=== PATIENT | female | born 1980 | race Caucasian/White ===

== ENCOUNTER 2022-12-09 10:10 | Outpatient (OUT) | payer OTHER, SELFPAY ==
--- NOTE | 2022-12-09 10:25 | US_ITS ---
The [address] [address] Patient Name: NOEMI WILDE MRN: [id number] date: 1980 Sex: F Assigned Patient Location: LAB Current Patient Location: Accession/Order Number: [id number] Exam Date: 12/09/2022 10:26 Report Date: 12/11/2022 06:28 At the request of: NON-STAFF PHYSICIAN Procedure: US thyroid EXAMINATION: US thyroid HISTORY: NECK SWELLING COMPARISON: No relevant comparison available. TECHNIQUE: Sonographic images of the thyroid gland were obtained. FINDINGS: The right thyroid lobe measures 4.7 x 0.7 x 1.2 cm. Single nodule. Nodule 1:1.6 x 1.3 x 0.9 cm. Solid, hypoechoic, wide, smooth margins, no calcifications. TR 4 The thyroid isthmus measures 2 mm, homogeneous. No focal nodule Left thyroid lobe is normal in size, contour and echotexture measuring 4.4 x 0.8 x 1.1 cm. No focal nodule US/US thyroid IMPRESSION: 1.6 cm right thyroid TR 4 nodule TI-RADS: The [employer] TI-RADS committee's white paper recommendations for thyroid lesions classified as TR4 (moderately suspicious) are listed below: > 1.0 cm. Follow-up ultrasound in 1, 2, 3, and 5 years. > 1.5 cm. FNA. J. Am Jesika Radiol 2017;14:587-595. Electronically authenticated by: DANN QUINTANA Date: 12/11/2022 06:28
[2022-12-09 11:00] LABS: Free T4 0.74 ng/dL (0.76-1.46)
[2022-12-09 11:05] LABS: Thyroid Stimulating Hormone 1.834 uIU/mL (0.358-3.740)
== END 2022-12-09 10:11 | disposition home or self-care (01) ==
LOC: US 10:10 → LAB 10:11
PROVIDERS: PCP Family Medicine
DX: E07.9 Disorder of thyroid, unspecified (principal); E04.1 Nontoxic single thyroid nodule
CPT/HCPCS: 36415; 76536; 84439; 84443

== ENCOUNTER 2023-03-08 15:25 | Outpatient (OUT) | payer OTHER, SELFPAY ==
[2023-03-08 15:40] LABS: Basophils Absolute Auto 0.1 10^3/uL (0.0-0.1); Basophils Percent Auto 0.7 % (0.2-2.0); Eosinophils Absolute Auto 0.2 10^3/uL (0.0-0.7); Eosinophils Percent Auto 3.5 % (0.9-7.0); Hematocrit 37.2 % (36.0-48.0); Hemoglobin 12.9 g/dL (12.0-16.0); Immature Granulocytes Abs Auto 0.02 10^3/uL (0.00-0.03); Immature Granulocytes Pct Auto 0.3 % (0.0-0.5); Lymphocytes Absolute Auto 1.8 10^3/uL (1.2-3.8); Lymphocytes Percent Auto 26.6 % (20.5-60.0); Mean Corpuscular HGB Conc 34.7 g/dL (29.9-35.2); Mean Corpuscular Hemoglobin 31.4 pg (26.7-34.0); Mean Corpuscular Volume 90.5 fL (81.0-99.0); Mean Platelet Volume 9.4 fL (9.5-13.5); Monocytes Absolute Auto 0.5 10^3/uL (0.3-0.8); Monocytes Percent Auto 7.4 % (1.7-12.0); Neutrophils Absolute Auto 4.2 10^3/uL (1.4-6.5); Neutrophils Percent Auto 61.5 % (43.0-75.0); Platelet Count 232 10^3/uL (150-450); Red Blood Count 4.11 10^6/uL (4.20-5.40); Red Cell Distribution Width 12.9 % (11.0-15.0); White Blood Count 6.9 10^3/uL (4.0-11.0)
[2023-03-08 15:55] LABS: Estimated Average Glucose 103 mg/dL; Glycohemoglobin A1C 5.2 % (4.5-6.2)
[2023-03-08 18:10] LABS: Free T4 0.66 ng/dL (0.76-1.46)
[2023-03-08 18:13] LABS: Alanine Aminotransferase 36 U/L (14-59); Albumin Globulin Ratio 1.1; Albumin Level 3.8 g/dL (3.4-5.0); Alkaline Phosphatase 62 U/L (46-116); Anion Gap 10.9; Aspartate Amino Transferase 16 U/L (15-37); BUN Creatinine Ratio 13.1; Bilirubin Direct 0.1 mg/dL (0.0-0.2); Bilirubin Total 0.2 mg/dL (0.2-1.0); Calcium 8.9 mg/dL (8.5-10.1); Carbon Dioxide 26.8 mmol/L (21.0-32.0); Chloride 106 mmol/L (98-107); Chol HDL Ratio 4.7; Cholesterol 213 mg/dL (<=200); Estimated GFR (African America >60 (>=60); Estimated GFR (Non-African Ame >60 (>=60); Free T3 2.17 pg/mL (2.18-3.98); Globulin 3.6 g/dL; Glucose 123 mg/dL (74-106); HDL Cholesterol 45 mg/dL (40-60); Potassium 3.7 mmol/L (3.5-5.1); Sodium 140 mmol/L (136-145); Thyroid Stimulating Hormone 2.043 uIU/mL (0.358-3.740); Total Protein 7.4 g/dL (6.4-8.2); Triglycerides 112 mg/dL (<=150); VLDL CHOLESTEROL 22.4 mg/dL
== END 2023-03-08 15:26 | disposition home or self-care (01) ==
LOC: LAB 15:25
PROVIDERS: PCP Family Medicine; Visit Provider Family Medicine
DX: Z00.00 Encounter for general adult medical examination without abnormal findings (principal); R79.89 Other specified abnormal findings of blood chemistry
CPT/HCPCS: 36415; 80048; 80061; 80076; 83036; 84439; 84443; 84481; 85025

== ENCOUNTER 2023-09-18 16:35 | Outpatient (OUT) | payer OTHER, SELFPAY ==
[2023-09-18 17:15] LABS: Free T4 0.75 ng/dL (0.76-1.46)
[2023-09-18 17:21] LABS: Free T3 2.55 pg/mL (2.18-3.98); Thyroid Stimulating Hormone 2.665 uIU/mL (0.358-3.740)
== END 2023-09-18 16:36 | disposition home or self-care (01) ==
LOC: LAB 16:35
PROVIDERS: PCP Family Medicine; Visit Provider Family Medicine
DX: E03.9 Hypothyroidism, unspecified (principal)
CPT/HCPCS: 36415; 84439; 84443; 84481

== ENCOUNTER 2024-03-20 14:35 | Outpatient (OUT) | payer OTHER, SELFPAY ==
--- OUTSIDE RECORDS SUMMARY | 2024-03-20 14:55 | XMS_ITS | CCD ---
Author Organization [facility] Care Team Providers Care Casino Controller Name Role Phone JUAN JULIAN Attending JUAN Brannon Consulting Unavailable JUAN JULIAN Primary Care Unavailable JUAN JULIAN Admitting Unavailable JUAN JULIAN Attending Unavailable SHAIKH BORDEN Attending Unavailable JUAN JULIAN Attending Unavailable JUAN JULIAN Attending Unavailable JUAN JULIAN Attending Unavailable IESHA, JUAN Attending Unavailable Juan Julian MD Primary Care Provider Shaikh Borden MD Unavailable Medications Current Medications Medication Drug Class(es) Dates Sig (Normalized) Sig (Original) amoxicillin 875 mg / clavulanate 125 mg oral tablet (2 sources) Penicillin-class Antibacterial Start: 11-05-2023 End: 11-15-2023 take 1 tablet by mouth in the morning amoxicillin-clavula rashi (Augmentin) 875-125 MG tablet Indications: Acute non-recurrent pansinusitis Take 1 tablet (875 mg) by mouth in the morning and 1 tablet (875 mg) before bedtime. Do all this for 10 days. 20 tablet 11/05/2023 11/15/2023 Active cetirizine hydrochloride 10 mg oral tablet (3 sources) Histamine-1 Receptor Antagonist Start: 09-20-2023 take 1 tablet by mouth in the morning cetirizine (ZyrTEC) 10 MG tablet Indications: Dysfunction of both eustachian tubes Take 1 tablet (10 mg) by mouth in the morning. 30 tablet 5 09/20/2023 Active fluticasone propionate 0.05 mg/actuat metered dose nasal spray (3 sources) Corticosteroid Start: 10-10-2023 take 2 spray(s) nasal route once daily in the morning fluticasone (Flonase) 50 MCG/ACT nasal spray Indications: Dysfunction of both eustachian tubes INSTILL 2 SPRAYS INTO EACH NOSTRIL EVERY MORNING 16 g 5 10/10/2023 Active levothyroxine sodium 0.025 mg oral tablet (3 sources) l-Thyroxine Start: 09-11-2023 take 1 tablet by mouth before mealtime levothyroxine (Synthroid) 25 MCG tablet Indications: Adult hypothyroidism (CMS/HCC) Take 1 tablet (25 mcg) by mouth in the morning. Take before meals. 30 tablet 5 09/11/2023 Active predniSONE 20 mg oral tablet (2 sources) Start: 11-05-2023 End: 11-10-2023 take 1 tablet by mouth in the morning predniSONE (Deltasone) 20 MG tablet Indications: Acute non-recurrent pansinusitis Take 1 tablet (20 mg) by mouth in the morning and 1 tablet (20 mg) before bedtime. Do all this for 5 days. 10 tablet 11/05/2023 11/10/2023 Active Problems Active Problems Problem Classification Problem Date Documented Date Episodic/Chronic Immunizations and screening for infectious disease (4 sources) Contact with and (suspected) exposure to other viral communicable diseases; Translations: [CONTCT EXPS OTH VIRL COMMUNICABL DZ] Onset: 01-12-2020 Episodic Osteoarthritis (3 sources) Arthritis; Translations: [Unspecified osteoarthritis, unspecified site] Onset: 02-08-2023 02-08-2023 Chronic Other nervous system disorders (3 sources) Bilateral carpal tunnel syndrome; Translations: [Carpal tunnel syndrome, bilateral upper limbs] Onset: 02-08-2023 02-08-2023 Chronic Other upper respiratory infections (3 sources) Chronic sinusitis, unspecified; Translations: [Chronic rhinitis] Onset: 02-08-2023 09-18-2023 Chronic Spondylosis; intervertebral disc disorders; other back problems (6 sources) Degeneration of lumbosacral intervertebral disc; Translations: [Other intervertebral disc degeneration, lumbosacral region] Onset: 02-08-2023 02-08-2023 Chronic Thyroid disorders (3 sources) Hypothyroidism; Translations: [Hypothyroidism, unspecified] Onset: 03-08-2023 03-09-2023 Chronic Past or Other Problems Problem Classification Problem Date Documented Da te Episodic/Chronic Mood disorders (3 sources) Mood disorders Onset: 03-08-2023 03-08-2023 Other ear and sense organ disorders (4 sources) Impacted cerumen in right ear; Translations: [Impacted cerumen, right ear] Onset: 11-05-2023 11-05-2023 Episodic Other upper respiratory infections (10 sources) Acute pansinusitis; Translations: [Acute pansinusitis, unspecified] Onset: 05-14-2023 Resolved: 09-18-2023 11-05-2023 Episodic Otitis media and related conditions (3 sources) Dysfunction of bilateral eustachian tubes; Translations: [Unspecified Eustachian tube disorder, bilateral] Onset: 02-08-2023 02-08-2023 Episodic Spondylosis; intervertebral disc disorders; other back problems (3 sources) Neck pain; Translations: [Cervicalgia] Onset: 02-08-2023 02-08-2023 Episodic Sprains and strains (3 sources) Injury of articular cartilage of left knee joint; Translations: [Sprain of other specified parts of left knee, subsequent encounter] Onset: 02-08-2023 02-08-2023 Episodic Results Test Name Value Interpretation Reference Range Facil ity COVID-19 PCRon 01-14-2020 SARS-CoV-2, RAVI Not Detected Normal Not Detected [facility] Comment on above: Result Comment: This nucleic acid amplif ication test was developed and its performance characteristics determined by [facility]. Nucleic acid amplification tests include PCR and TMA. This test has not been FDA cleared or approved. This test has been authorized by FDA under an Emergency Use Authorization (EUA). This test is only authorized for the duration of time the declaration that circumstances exist justifying the authorization of the emergency use of in vitro diagnostic tests for detection of SARS-CoV-2 virus and/or diagnosis of COVID-19 infection under section 564(b)(1) of the Act, 21 U.S.C. 360bbb-3(b) (1), unless the authorization is terminated or revoked sooner. When diagnostic testing is negative, the possibility of a false negative result should be considered in the context of a patient's recent exposures and the presence of clinical signs and symptoms consistent with COVID-19. An individual without symptoms of COVID-19 and who is not shedding SARS-CoV-2 virus would expect to have a negative (not detected) result in this assay. Performed By: #### C VDPCR #### [facility] [address] [address] Erma Mercedes Vital Signs Date Time Vital Sign Value Performing Clinician Gage larsony 11-05-2023 10:34-0400 Body height 170.2 cm Juan Julian MD Work Phone: [facility] 11-05-2023 10:34-0400 Body mass index (BMI) [Ratio] 31.95 kg/m2 Juan Julian MD Work Phone: [facility] 11-05-2023 10:34-0400 Body temperature 97.81 [degF] Juan Julian MD Work Phone: [facility] 11-05-2023 10:34-0400 Body weight 92.53 kg Juan Julian MD Work Phone: [facility] 11-05-2023 10:34-0400 Diastolic blood pressure 56 mm[Hg] Juan Julian MD Work Phone: [facility] 11-05-2023 10:34-0400 Heart rate 78 /min Juan Julian MD Work Phone: [facility] 11-05-2023 10:34-0400 Respiratory rate 20 /min Juan Julian MD Work Phone: [facility] 11-05-2023 10:34-0400 SaO2% (BldA) [Mass fraction] 98 % Juan Julian MD Work Phone: [facility] 11-05-2023 10:34-0400 Systolic blood pressure 94 mm[Hg] Juan Julian MD Work Phone: [facility] Healthcare Encounters Encounter Date Encounter Type Care Provider Facility Start: 11-05-2023 End: 11-05-2023 Bamboo flowsheet Juan Julian MD Work Phone: [facility] Start: 11-05-2023 End: 11-05-2023 Bamboo flowsheet Juan Julian MD Work Phone: [facility] Start: 11-05-2023 End: 11-05-2023 Office outpatient visit 15 minutes Juan Julian MD Work Phone: [facility] Comment on above: Acute non-recurrent pansinusitis (Primary Dx); Right ear impacted cerumen Start: 11-05-2023 End: 11-05-2023 ambulatory JUAN GARCIAR Not Available Start: 09-18-2023 End: 09-18-2023 ambulatory JUAN MORILLOERER Not Available Start: 05-29-2023 End: 05-29-2023 ambulatory JUAN NADERER Not Available Start: 05-14-2023 End: 05-14-2023 ambulatory SHAIKH RODANUPAM Not Available Start: 03-08-2023 Patient encounter procedure Diomedes Julian MD Work Phone: [facility] Start: 03-08-2023 End: 03-08-2023 ambulatory JUAN NADERER Not Available Start: 02-08-2023 End: 02-08-2023 ambulatory JUAN NADERER Not Available Start: 01-12-2020 End: 01-13-2020 Patient encounter procedure JUAN JULIAN Facility:[facility] Plan of Treatment Date Care Activity Detail Author Start: 03-20-2024 End: 03-20-2024 Patient encounter procedure 03/20/2024 1:30 PM EST Office Visit [facility] [address] [place] [phone] Juan Julian MD [address] [place] [phone] [facility] Start: 11-05-2023 End: 11-05-2023 Patient encounter procedure 11/05/2023 10:30 AM EDT Office Visit [facility] [address] [place] [phone] Juan Julian MD [address] [place] [address] Arrived [facility] Comment on above: Arrived Start: 10-28-2023 Influenza vaccination Influenza Vacc ine (#1) [facility] Start: 2019 Screening for malign ant neoplasm of breast Mammogram [facility] Start: 09-06-2009 Screening for malign ant neoplasm of cervix [facility] Start: 09-06-2000 Screening for malign ant neoplasm of cervix Pap Smear [facility] Payers Date Payer Category Payer Medicaid [employer] [place] [employer] [id number] 2022-Present [address] [place] [address] [id number] 1980 Unknown [id number] 1980 Unknown [id number] 1980 Unknown [id number] 1980 Unknown [id number] 1980 Unknown [id number] 1980 Unknown [id number] 1980 Unknown [id number] 1959 Unknown [id number] Social History Date Type Detail Facility Start: 05-14-2023 Tobacco smoking status IAIS Ex-smoke r [facility] End: 02-26-2010 History of tobacco use Current smoker [facility] End: 02-26-2010 History of tobacco use Cigarette Smoker [facility] History of tobacco use Passive smoker [facility] Start: 05-14-2023 Tobacco use and exposure Smoke less tobacco non-user [facility] Start: 09-18-2023 End: 11-05-2023 Alcoholic beverage intake Lifetime non-drinker (finding) [facility] Start: 05-14-2023 End: 09-17-2023 History of Social function [facility] Start: 05-14-2023 End: 09-17-2023 [id number] Health Literacy [facility] How often do you nee d to have someone help you when you read instructions, pamphlets, or other written material from your doctor or pharmacy [SILS] Never [facility] Do you belong to any clubs or organizations such as zoroastrian groups, unions, fraternal or athletic groups, or school groups? No [facility] Are you now , , , , never or living with a partner? Living with partner [facility] How often to you hav e a drink containing alcohol? Never [facility] How hard is it for y ou to pay for the very basics like food, housing, medical care, and heating Hard [facility] Do you feel stress - tense, restless, nervous, or anxious, or unable to sleep at night because your mind is troubled all the time - these days [OSQ] Only a little [facility] (I/We) worried wheth er (my/our) food would run out before (I/we) got money to buy more. Never true [facility] Start: 03-05-2023 Tobacco Comment Last smoked : > 10 years [facility] Start: 1980 Sex assigned at Not on file [facility] History of Present illness Narrative 11-05-2023 Juan Julian MD - 11/05/2023 10:53 AM Ree Julian MD - 11/05/2023 10:52 AM Ree Julian MD - 11/05/2023 10:30 AM EDT Note Date & Type Note Facility 11-05-2023 History of Presen t illness Narrative Associated Problem(s): Right ear impacted cerumen Ear plugged and impaction on exam. Ear irrigated with water and cerumen removed with speculum. Canal clear after procedure. Use debrox or drops of baby oil to prevent build up of wax in future. Do not use q-tips inside ear. Associated Problem(s): Acute non-recurrent pansinusitis Take antibiotics BID for 10 days. Use prednisone for inflammation. Use sudafed or other decongestants as needed. Use Robitussin or Robitussin-DM for cough. Can use afrin for congestion but no longer than 3 days. Can use Mucinex to bring up phlegm. Use Motrin or Tylenol as needed for fever, aches, or pains. Increase fluid intake and rest. Should improve over next 5-7 days and if no better or worse call for re-evaluation. Images from the original note were not included. Subjective Patient ID: Susan Ramey is a 43 y.o. female who presents for Ear Drainage (With pain. Started last week). C/o right ear plugged for 5-6 days. Increased pressure and feels like something in ear. Frequent popping. Decreased hearing and things are muffled. Increased congestion and rhinorrhea. No cough or SOB. C/o VERA and sinus pressure in forehead and cheeks along with postnasal drip. Afebrile. Mild fatigue. No drainage from ear. Denies sick contacts. Mild nausea but no emesis or diarrhea. Taking flonase and zyrtec daily. Review of Systems Respiratory: Negative for cough, shortness of breath and wheezing. Cardiovascular: Negative for chest pain and palpitations. Gastrointestinal: Negative for abdominal pain, diarrhea, nausea and vomiting. Genitourinary: Negative for dysuria. Objective Physical Exam Constitutional: General: She is not in acute distress. Appearance: Normal appearance. HENT: Head: Normocephalic. Ears: Comments: Right canal obstructed with cerumen. Left TM clear but bulging with fluid. Eyes: Extraocular Movements: Extraocular movements intact. Pupils: Pupils are equal, round, and reactive to light. Cardiovascular: Rate and Rhythm: Normal rate and regular rhythm. Heart sounds: No murmur heard. No friction rub. No gallop. Pulmonary: Effort: Pulmonary effort is normal. Breath sounds: Normal breath sounds. No wheezing, rhonchi or rales. Abdominal: General: Bowel sounds are normal. There is no distension. Palpations: Abdomen is soft. Tenderness: There is no abdominal tenderness. There is no guarding or rebound. Musculoskeletal: Cervical back: Neck supple. Right lower leg: No edema. Left lower leg: No edema. Neurological: Mental Status: She is alert. Assessment/Plan Problem List Items Addressed This Visit Acute non-recurrent pansinusitis - Primary Take antibiotics BID for 10 days. Use prednisone for inflammation. Use sudafed or other decongestants as needed. Use Robitussin or Robitussin-DM for cough. Can use afrin for congestion but no longer than 3 days. Can use Mucinex to bring up phlegm. Use Motrin or Tylenol as needed for fever, aches, or pains. Increase fluid intake and rest. Should improve over next 5-7 days and if no better or worse call for re-evaluation. Relevant Medications amoxicillin-clavulanate (Augmentin) 875-125 MG tablet predniSONE (Deltasone) 20 MG tablet Right ear impacted cerumen Ear plugged and impaction on exam. Ear irrigated with water and cerumen removed with speculum. Canal clear after procedure. Use debrox or drops of baby oil to prevent build up of wax in future. Do not use q-tips inside ear. documented in this encounter [facility] Evaluation note Note Date & Type Note Facility Evaluation note Diagnosis Acute non-recurrent pansinusitis- Primary Right ear impacted cerumen Impacted cerumen documented in this encounter [facility] Summary Purpose Family History No Family History Records FoundNo Family History Records Found Advance Directives No Advanced Directives Records FoundNo Advanced Directives Records Found Additional Source Comments INFORMATION SOURCE (unrecogn ized section and content) DATE CREATED AUTHOR 01/16/2020 [facility] DATE CREATED AUTHOR AUTHOR'S ORGANIZ ATION 11/06/2023 [facility] EPIC Reason for Visit (unrecogniz ed section and content) Reason Comments Ear Drainage With pain. Started l ast week Care Teams (unrecognized sec tion and content) Casino Controller Relationship Specialty Start Date End Date Juan Julian MD [address] [place] [phone] PCP - [facility] 05/14/23 Shaikh Borden MD [address] [place] [phone] [facility] 08/27/23 Casino Controller Relationship Specialty Start Date End Date Juan Julian MD [address] [place] [phone] PCP - [facility] 05/14/23 Shaikh Borden MD [address] [place] [phone] [facility] 08/27/23 FOR RECORDS PERTAINING TO PATIENTS WHO ARE OR HAVE BEEN ENROLLED IN A CHEMICAL DEPENDENCY/SUBSTANCEABUSE PROGRAM, SOME INFORMATION MAY BE OMITTED. This clinical summary was aggregated from multiple sources. Caution should be exercised in using it in the provision of clinical care. This summary normalizes information from multiple sources, and as a consequence, information in this document may materially change the coding, format and clinical context of patient data. In addition, data may be omitted in some cases. CLINICAL DECISIONS SHOULD BE BASED ON THE PRIMARY CLINICAL RECORDS. [facility] [employer] [facility]. provides no warranty or guarantee of the accuracy or completeness of information in this document.
[2024-03-20 15:06] LABS: Basophils Percent Auto 0.7 % (0.2-2.0); Eosinophils Absolute Auto 0.2 10^3/uL (0.0-0.7); Eosinophils Percent Auto 4.5 % (0.9-7.0); Hematocrit 41.3 % (36.0-48.0); Lymphocytes Absolute Auto 1.4 10^3/uL (1.2-3.8); Lymphocytes Percent Auto 32.1 % (20.5-60.0); Mean Corpuscular HGB Conc 33.9 g/dL (29.9-35.2); Mean Corpuscular Hemoglobin 31.1 pg (26.7-34.0); Mean Corpuscular Volume 91.8 fL (81.0-99.0); Mean Platelet Volume 9.3 fL (9.5-13.5); Monocytes Absolute Auto 0.4 10^3/uL (0.3-0.8); Monocytes Percent Auto 8.9 % (1.7-12.0); Neutrophils Absolute Auto 2.4 10^3/uL (1.4-6.5); Neutrophils Percent Auto 53.8 % (43.0-75.0); Platelet Count 199 10^3/uL (150-450); Red Cell Distribution Width 12.6 % (11.0-15.0); White Blood Count 4.5 10^3/uL (4.0-11.0)
[2024-03-20 15:18] LABS: Estimated Average Glucose 108 mg/dL; Glycohemoglobin A1C 5.4 % (4.5-6.2)
[2024-03-20 15:44] LABS: Free T4 0.75 ng/dL (0.76-1.46)
[2024-03-20 15:48] LABS: Alanine Aminotransferase 60 U/L (14-59); Albumin Globulin Ratio 1.2; Albumin Level 4.1 g/dL (3.4-5.0); Alkaline Phosphatase 64 U/L (46-116); Aspartate Amino Transferase 32 U/L (15-37); BUN Creatinine Ratio 9.3; Bilirubin Direct 0.1 mg/dL (0.0-0.2); Bilirubin Total 0.2 mg/dL (0.2-1.0); Calcium 9.2 mg/dL (8.5-10.1); Carbon Dioxide 27.7 mmol/L (21.0-32.0); Chloride 103 mmol/L (98-107); Chol HDL Ratio 5.2; Cholesterol 234 mg/dL (<=200); Estimated GFR (African America >60 (>=60 mL/min/1.73m^2); Estimated GFR (Non-African Ame >60 (>=60 mL/min/1.73m^2); Globulin 3.4 g/dL; Glucose 104 mg/dL (74-106); HDL Cholesterol 45 mg/dL (40-60); Potassium 3.7 mmol/L (3.5-5.1); Sodium 140 mmol/L (136-145); Thyroid Stimulating Hormone 2.448 uIU/mL (0.358-3.740); Total Protein 7.5 g/dL (6.4-8.2); Triglycerides 179 mg/dL (<=150); VLDL CHOLESTEROL 35.8 mg/dL
== END 2024-03-20 14:36 | disposition home or self-care (01) ==
LOC: LAB 14:37
PROVIDERS: PCP Family Medicine; Visit Provider Family Medicine
DX: Z00.00 Encounter for general adult medical examination without abnormal findings (principal)
CPT/HCPCS: 36415; 80048; 80061; 80076; 83036; 84439; 84443; 85025